=== PATIENT | female | born 1970 | race Caucasian/White ===

== ENCOUNTER 2023-04-02 10:08 | Outpatient (REF) | payer OTHER, SELFPAY | END 2023-04-02 10:09 | disposition home or self-care (01) | LOC: HO.UMASIMG 10:08 | PROVIDERS: Visit Provider Nurse Practitioner | DX: R79.89 Other specified abnormal findings of blood chemistry (principal) | CPT/HCPCS: 76700 ==

== ENCOUNTER 2025-02-02 06:38 | Outpatient (REF) | payer OTHER, SELFPAY ==
--- NOTE | ~2025-02-02 | US_ITS ---
EXAMINATION: US ABDOMEN HISTORY: LEFT SIDED PAIN TECHNIQUE: Real-time grayscale ultrasound imaging of the abdomen was performed and images were reviewed. COMPARISON: Comparison is made with the prior examination dated 04/02/2023. FINDINGS: Liver: The right lobe of the liver measures 14.5 cm in size. The left lobe of the liver measures 8.0 cm in size. The liver demonstrates coarsened echotexture. No focal mass or intrahepatic biliary ductal dilatation is identified. There is normal hepatopedal flow in the portal vein. Gallbladder and biliary tree: The gallbladder is unremarkable, without evidence of calculi, wall thickening, or pericholecystic fluid. There is no sonographic Flores sign. The common bile duct is normal in caliber measuring 1 mm. Kidneys: The right kidney measures 11.6 cm in length. The left kidney measures 11.7 cm in length. The kidneys are unremarkable, without evidence of masses, hydronephrosis, or calculi. Pancreas: The pancreatic head, neck, and body are unremarkable. The pancreatic tail is obscured by bowel gas. Spleen: The spleen is normal in size and contour, measuring 8.6 cm in length. Abdominal aorta and inferior vena cava: The visualized portions of the abdominal aorta and inferior vena cava are normal in caliber. There is no free fluid in the abdomen. US/US abdomen complete IMPRESSION: Coarsened hepatic echotexture which is a nonspecific finding. Otherwise unremarkable abdominal ultrasound. Electronically signed by: Brien Stuart MD 02/02/2025 10:05 AM [facility]
--- OUTSIDE RECORDS SUMMARY | 2025-02-02 06:41 | XMS_ITS | Encounter Summary ---
Author Organization [facility] Address [address] [place] [address] Phone Care Team Providers Care Grain Oilseed Or Pasture Grower Name Role Phone Judith Felix CNP Primary Care Provider Geovany Schmitz MD Primary Care Provider [phone] Geovany Schmitz MD Unavailable [phone] Encounter Details Date Type Department Care Team (Late st Contact Info) Description 10/22/2017 Ancillary Orders Virtual Department [address] [place] [address] Elise [place] MD [address] [place] [address] [email or web address] Chest pain, unspecified type; Cardiac ischemia Social History Tobacco Use Types Packs/Day Years Used Date Smoking Tobacco: Never Assessed Comments Unknown Sex and Gender Information Value Date Recorded Sex Assigned at Female 06/07/2018 6:00 PM EDT Legal Sex Female 6:48 PM EST Gender Identity Female 06/07/2018 6:00 PM EDT Sexual Orientation Straight 07/31/2018 8: 42 PM EDT documented as of this encounter Plan of Treatment Not on file documented as of this encounter Visit Diagnoses Diagnosis Chest pain, unspecified type Cardiac ischemia Other specified forms of chronic ischemic heart disease documented in this encounter Care Teams Grain Oilseed Or Pasture Grower Relationship Specialty Start Date End Date Judith Felix CNP PCP - General Family Medicine 10/08/17 10/28/17 Geovany Schmitz MD [address] [place] [address] [email or web address] PCP - General Internal Medicine 10/29/17 Geovany Schmitz MD [address] [place] [address] [email or web address] Insurance Assigned Provider 07/04/23 documented as of this encounter Additional Source Comments The information contained in this document represents components of the legal health record. It is not the complete legal health record.[facility]
--- OUTSIDE RECORDS SUMMARY | 2025-02-02 06:41 | XMS_ITS | Encounter Summary ---
Author Organization [facility] Address [address] [place] [address] Phone Care Team Providers Care Furnace Packer Name Role Phone Geovany Schmitz MD Primary Care Provider [phone] Geovany Schmitz MD Unavailable [phone] Encounter Details Date Type Department Care Team (Late st Contact Info) Description 05/18/2018 Ancillary Orders Virtual Department [address] [place] [address] Belen Ortiz MD [address] [place] [address] [email or web address] Pelvic and perineal pain Social History Tobacco Use Types Packs/Day Years Used Date Smoking Tobacco: Never Smokeless Tobacco: Never Alcohol Use Standard Drinks/Week Comments Yes 0 (1 standard drink = 0.6 oz pur e alcohol) Comments Unknown Sex and Gender Information Value Date Recorded Sex Assigned at Female 06/07/2018 6:00 PM EDT Legal Sex Female 6:48 PM EST Gender Identity Female 06/07/2018 6:00 PM EDT Sexual Orientation Straight 07/31/2018 8: 42 PM EDT documented as of this encounter Plan of Treatment Not on file documented as of this encounter Visit Diagnoses Diagnosis Pelvic and perineal pain documented in this encounter Care Teams Furnace Packer Relationship Specialty Start Date End Date Geovany Schmitz MD [address] [place] [address] PCP - General Internal Medicine 10/29/17 Geovany Schmitz MD [address] [place] [address] [email or web address] Insurance Assigned Provider 07/04/23 documented as of this encounter Additional Source Comments The information contained in this document represents components of the legal health record. It is not the complete legal health record.[facility]
--- OUTSIDE RECORDS SUMMARY | 2025-02-02 06:41 | XMS_ITS | Encounter Summary ---
Author Organization [facility] Address [address] [place] [address] Phone Care Team Providers Care Manga Artist Name Role Phone Judith Felix CNP Primary Care Provider Geovany Schmitz MD Primary Care Provider [phone] Geovany Schmitz MD Unavailable [phone] Encounter Details Date Type Department Care Team (Late st Contact Info) Description 10/08/2017 Ancillary Orders Virtual Department [address] [place] [address] Elise [place] MD [address] [place] [address] [email or web address] Social History Tobacco Use Types Packs/Day Years [...] documented as of this encounter Visit Diagnoses Not on filedocumented in this encounter Care Teams Manga Artist Relationship Specialty Start Date End Date Judith Felix CNP PCP - General Family Medicine 10/08/17 10/28/17 Geovany Schmitz MD [address] [place] [address] [email or web address] PCP - General Internal Medicine 10/29/17 Geovany Schmitz MD [address] [place] [address] [email or web address] Insurance Assigned Provider 07/04/23 documented as of this encounter Additional Source Comments The information contained in this document represents components of the legal health record. It is not the complete legal health record.[facility]
--- OUTSIDE RECORDS SUMMARY | 2025-02-02 06:41 | XMS_ITS | Encounter Summary ---
Author Organization [facility] Address [address] [place] [address] Phone Care Team Providers Care Dedicated Driver Name Role Phone Judith Felix CNP Primary Care Provider [phone] Geovany Schmitz MD Primary Care Provider [phone] Geovany Schmitz MD Unavailable [phone] Encounter Details Date Type Department Care Team (Late st Contact Info) Description 10/16/2017 Ancillary Orders Virtual Department [address] [place] [address] Elise [place] MD [address] [place] [address] [email or web address] Social History Tobacco Use Types Packs/Day Years [...] on filedocumented in this encounter Care Teams Dedicated Driver Relationship Specialty Start Date End Date Judith Felix CNP PCP - General Family Medicine 10/08/17 10/28/17 Geovany Schmitz MD [address] [place] [address] [email or web address] PCP - General Internal Medicine 10/29/17 Geovany Schmitz MD [address] [place] [address] [email or web address] Insurance Assigned Provider 07/04/23 documented as of this encounter Additional Source Comments The information contained in this document represents components of the legal health record. It is not the complete legal health record.[facility]
--- OUTSIDE RECORDS SUMMARY | 2025-02-02 06:41 | XMS_ITS | Encounter Summary ---
Author Organization [facility] Address [address] [place] [address] Phone Care Team Providers Care Feather Drying Machine Operator Name Role Phone Judith Felix CNP Primary Care Provider Geovany Schmitz MD Primary Care Provider [phone] Geovany Schmitz MD Unavailable [phone] Encounter Details Date Type Department Care Team (Late st Contact Info) Description 10/16/2017 Ancillary Orders Virtual Department [address] [place] [address] Elise [place] MD [address] [place] [address] [email or web address] Social History Tobacco Use Types Packs/Day Years [...] on filedocumented in this encounter Care Teams Feather Drying Machine Operator Relationship Specialty Start Date End Date Judith Felix CNP PCP - General Family Medicine 10/08/17 10/28/17 Geovany Schmitz MD [address] [place] [address] [email or web address] PCP - General Internal Medicine 10/29/17 Geovany Schmitz MD [address] [place] [address] [email or web address] Insurance Assigned Provider 07/04/23 documented as of this encounter Additional Source Comments The information contained in this document represents components of the legal health record. It is not the complete legal health record.[facility]
--- OUTSIDE RECORDS SUMMARY | 2025-02-02 06:41 | XMS_ITS | Encounter Summary ---
Author Organization [facility] Address [address] [place] [address] Phone Care Team Providers Care Firmware Software Verification Engineer Name Role Phone Judith Felix CNP Primary Care Provider [phone] Geovany Schmitz MD Primary Care Provider Geovany Schmitz MD Unavailable [phone] Encounter Details Date Type Department Care Team (Late st Contact Info) Description 10/16/2017 Ancillary Orders Virtual Department [address] [place] [address] Elise [place] MD [address] [place] [address] [email or web address] Positive cardiac stress test; Left sided chest pain Social History Tobacco Use Types Packs/Day [...] as of this encounter Visit Diagnoses Diagnosis Positive cardiac stress test Left sided chest pain documented in this encounter Care Teams Firmware Software Verification Engineer Relationship Specialty Start Date End Date Judith Felix CNP PCP - General Family Medicine 10/08/17 10/28/17 Geovany Schmitz MD [address] [place] [address] [email or web address] PCP - General Internal Medicine 10/29/17 Geovany Schmitz MD [address] [place] [address] [email or web address] Insurance Assigned Provider 07/04/23 documented as of this encounter Additional Source Comments The information contained in this document represents components of the legal health record. It is not the complete legal health record.[facility]
--- OUTSIDE RECORDS SUMMARY | 2025-02-02 06:41 | XMS_ITS | Encounter Summary ---
Author Organization [facility] Address [address] [place] [address] Phone Care Team Providers Care Research Software Engineer Name Role Phone Judith Felix CNP Primary Care Provider Geovany Schmitz MD Primary Care Provider Geovany Schmitz MD Unavailable [phone] Encounter Details Date Type Department Care Team (Late st Contact Info) Description 10/08/2017 Transcribe Orders Virtual Department 30 [place] [address] Elise [place] MD [address] [place] [address] [email or web address] Other chest pain (Primary Dx) Social History Tobacco Use Types Packs/Day Years [...] as of this encounter Visit Diagnoses Diagnosis Other chest pain- Primary documented in this encounter Care Teams Research Software Engineer Relationship Specialty Start Date End Date Judith Felix CNP PCP - General Family Medicine 10/08/17 10/28/17 Geovany Schmitz MD [address] [place] [address] [email or web address] PCP - General Internal Medicine 10/29/17 Geovany Schmitz MD [address] [place] [address] [email or web address] Insurance Assigned Provider 07/04/23 documented as of this encounter Additional Source Comments The information contained in this document represents components of the legal health record. It is not the complete legal health record.[facility]
--- OUTSIDE RECORDS SUMMARY | 2025-02-02 06:41 | XMS_ITS | Encounter Summary ---
Author Organization [facility] Address [address] [place] [address] Phone Care Team Providers Care Stonework Tracer Name Role Phone Judith Felix CNP Primary Care Provider Geovany Schmitz MD Primary Care Provider [phone] Geovany Schmitz MD Unavailable [phone] Reason for Referral * Physical Therapy (Routine) - Closed Specialty Diagnoses / Procedures Referred By Lili quispe Referred To Contact Physical Therapy Diagnoses Encounter for rehabilitation Elise [place] MD Phone: tel: fax: [email or web address] [address] Phone: tel: Referral ID Status Reason Start Date Expiration Date Visits Re quested Visits Authorized [id number] Closed 10/09/2017 10/09/2018 1 1 Encounter Details Date Type Department Care Team (Latest Contact Info) Description 10/09/2017 Transcribe Orders [facility] [address] [place] [address] Elise [place] MD [address] [place] [address] [email or web address] Encounter for rehabilitation (Primary Dx) Social History Tobacco Use Types Packs/Day Years Used Date Smoking Tobacco: Never Assessed Comments Unknown Sex and Gender Information Value Date Recorded Sex Assigned at Female 06/07/2018 6:00 PM EDT Legal Sex Female 6:48 PM EST Gender Identity Female 06/07/2018 6:00 PM EDT Sexual Orientation Straight 07/31/2018 8: 42 PM EDT documented as of this encounter Plan of Treatment Scheduled Referrals Name Type Priority Associated Diagnoses Orde r Schedule Ambulatory referral to [facility] Physical Therapy Outpatient Referral Routine Encounter for rehabilitation Ordered: 10/09/2017 documented as of this encounter Visit Diagnoses Diagnosis Encounter for rehabilitation- Primary documented in this encounter Care Teams Stonework Tracer Relationship Specialty Start Date End Date Judith Felix, UTILIZATION SPECIALIST PCP - General Family Medicine 10/08/17 10/28/17 Geovany Schmitz MD [address] [place] [address] PCP - General Internal Medicine 10/29/17 Geovany Schmitz MD [address] [place] [address] Insurance Assigned Provider 07/04/23 documented as of this encounter Additional Source Comments The information contained in this document represents components of the legal health record. It is not the complete legal health record.[facility]
--- OUTSIDE RECORDS SUMMARY | 2025-02-02 06:41 | XMS_ITS | Encounter Summary ---
Author Organization [facility] Address [address] [place] [address] Phone Care Team Providers Care Weight Reduction Specialist Name Role Phone Geovany Schmitz MD Primary Care Provider [phone] Geovany Schmitz MD Unavailable [phone] Encounter Details Date Type Department Care Team ([facility] st Contact Info) Description 05/12/2023 Transcribe Orders [facility] Phleb Main [address] [place] [address] Geovany Schmitz MD [address] [place] [address] [email or web address] Social History Tobacco Use Types Packs/Day Years Used Date Smoking Tobacco: Never Smokeless Tobacco: Never Alcohol Use Standard Drinks/Week Comments Yes 0 (1 standard drink = 0.6 oz pur e alcohol) 6 drinks a week Education Answer Date Recorded Are you interested in more education? Not on paul e 07/26/2022 Are you concerned about learning? Not on file 07/26/2022 No 07/26/2022 No 07/26/2022 Digital Access Answer Date Recorded No 08/24/2022 No 08/24/2022 No 08/24/2022 Reliable internet access at home? Not on file 08/24/2022 Device with a working camera? Not on file Comments No Sex and Gender Information Value Date Recorded Sex Assigned at Female 06/07/2018 6:00 PM EDT Legal Sex Female 6:48 PM EST Gender Identity Female 06/07/2018 6:00 PM EDT Sexual Orientation Straight 07/31/2018 8: 42 PM EDT documented as of this encounter Plan of Treatment Not on file documented as of this encounter Visit Diagnoses Not on filedocumented in this encounter Care Teams Weight Reduction Specialist Relationship Specialty Start Date End Date Geovany Schmitz MD [address] [place] [address] PCP - General Internal Medicine 10/29/17 Geovany Schmitz MD [address] [place] [address] Insurance Assigned Provider 07/04/23 documented as of this encounter Additional Source Comments The information contained in this document represents components of the legal health record. It is not the complete legal health record.[facility]
--- OUTSIDE RECORDS SUMMARY | 2025-02-02 06:41 | XMS_ITS | Encounter Summary ---
Author Organization [facility] Address [address] [place] [address] Phone Care Team Providers Care It Risk Analyst Name Role Phone Geovany Schmitz MD Primary Care Provider [phone] Geovany Schmitz MD Unavailable [phone] Encounter Details Date Type Department Care Team (Latest Contact Info) Description 05/12/2023 Transcribe Orders [facility] Phleb Main [address] [place] [address] Yimi Lopez PA [address] [place] [address] [address] Fatty liver (Primary Dx) Social History Tobacco Use Types [...] on file documented as of this encounter Results * (ABNORMAL) Comprehensive metabolic panel (05/12/2023 7:42 AM EST) SODIUM 141 133 - 146 mmol/L [facility] POTASSIUM 4.3 3.3 - 5.1 mmol/L [facility] CHLORIDE 103 96 - 108 mmol/L [facility] CO2 28 21 - 35 mmol/L [facility] BUN 19 6 - 19 mg/dL [facility] CREATININE 0.80 0.5 - 1.5 mg/dL [facility] GLUCOSE 77 70 - 99 mg/dL [facility] ALBUMIN 4.3 3.9 - 4.8 g/dL [facility] TOTAL PROTEIN 6.7 6.5 - 8.0 g/dL [facility] CALCIUM 9.2 8.4 - 10.3 mg/dL [facility] ALKALINE PHOSPHATASE 58 39 - 117 U/L [facility] TOTAL BILIRUBIN 0.5 0.0 - 1.2 mg/dL [facility] AST 51(H) 0 - 37 U/L [facility] ALT 42(H) 0 - 40 U/L [facility] GLOBULIN 2.4 1 - 4.8 g/dL [facility] EGFR 89 >59 mL/min/1.7 3m2 [facility] Comment:Estimated glomerular filtration rate calculated using the CKD-EPI refit equation. ANION GAP 14 10 - 20 mmol/L [facility] Blood 05/12/2023 7:42 AM EST 05/12/2023 8:01 AM EST us Yimi DANIEL LAB BLOOD BKR ORDERABLES Final Result [facility] [address] [place] [address] documented in this encounter Visit Diagnoses Diagnosis Fatty liver- Primary Other chronic nonalcoholic liver disease documented in this encounter Care Teams It Risk Analyst Relationship Specialty Start Date End Date Geovany Schmitz MD [address] [place] [address] [email or web address] PCP - General Internal Medicine 10/29/17 Geovany Schmitz MD [address] [place] [address] Insurance Assigned Provider 07/04/23 documented as of this encounter Additional Source Comments The information contained in this document represents components of the legal health record. It is not the complete legal health record.[facility]
--- OUTSIDE RECORDS SUMMARY | 2025-02-02 06:41 | XMS_ITS | Encounter Summary ---
Author Organization [facility] Address [address] [place] [address] Phone Care Team Providers Care Champion Of Sustainable Design Name Role Phone Geovany Schmitz MD Primary Care Provider [phone] Geovany Schmitz MD Unavailable [phone] Encounter Details Date Type Department Care Team (Late st Contact Info) Description 06/08/2018 Procedure Pass [facility] Cardiovascular And Interventional Radiology [address] [place] [address] Social History Tobacco Use Types Packs/Day Years Used Date Smoking Tobacco: Never Smokeless Tobacco: Never Alcohol Use Standard Drinks/Week Comments Yes 0 (1 standard drink = 0.6 oz pur e alcohol) 6 drinks a week Comments Unknown Sex and Gender Information Value [...] on filedocumented in this encounter Care Teams Champion Of Sustainable Design Relationship Specialty Start Date End Date Geovany Schmitz MD [address] [place] [address] [email or web address] PCP - General Internal Medicine 10/29/17 Geovany Schmitz MD [address] [place] [address] (work) [email or web address] Insurance Assigned Provider 07/04/23 documented as of this encounter Additional Source Comments The information contained in this document represents components of the legal health record. It is not the complete legal health record.[facility]
--- OUTSIDE RECORDS SUMMARY | 2025-02-02 06:41 | XMS_ITS | Clinical Summary ---
Author Organization [facility] Address [address] [place] [address] Care Team Providers Care Meter Maintenance Person Name Role Phone Unknown, Primary Care Provider Unavailabl e Social History Tobacco Use Types Packs/Day Years Used Date Smoking Tobacco: Never Assessed Sex and Gender Information Value Date Recorded Sex Assigned at Not on file Gender Identity Not on file Sexual Orientation Not on file Job Start Date Occupation Industry Not on file Not on file Not on file Plan of Treatment Health Maintenance Due Date Last Done Comments Hepatitis B Vaccines (1 of 3 - 3-dose series) 1971 Hepatitis C Screening 1971 COVID-19 Vaccine (#1) 1971 Depression Screening 1983 Preventative Health Evaluation 1989 DTap / Tdap / Td (1 - Tdap) 1990 Cervical Cancer Screening (P ap Smear) 01/05/1992 Colon Cancer Screening (Colonoscopy) 01/05/2016 Breast Cancer Screening (Mammogram) 2021 Shingrix-Zoster Vaccine (1 of 2) 2021 Influenza Vaccine (#1) 2024 Pneumococcal Vaccine Aged Out No long er eligible based on patient's age to complete this topic RSV Ped < 20 months Aged Out No longe r eligible based on patient's age to complete this topic Care Teams Meter Maintenance Person Relationship Specialty Start Date End Date Unknown, PCP - General 05/27/23
--- OUTSIDE RECORDS SUMMARY | 2025-02-02 06:41 | XMS_ITS | Encounter Summary ---
Author Organization [facility] Address [address] [place] [address] Phone Care Team Providers Care Roll Off Driver Name Role Phone Geovany Schmitz MD Primary Care Provider [phone] Geovany Schmitz MD Unavailable [phone] Encounter Details Date Type Department Care Team (Late st Contact Info) Description 12/07/2017 Procedure Pass [facility] [address] [place] [address] Social History Tobacco Use Types Packs/Day Years [...] on filedocumented in this encounter Care Teams Roll Off Driver Relationship Specialty Start Date End Date Geovany Schmitz MD [address] [place] [address] PCP - General Internal Medicine 10/29/17 Geovany Schmitz MD [address] [place] [address] [email or web address] Insurance Assigned Provider 07/04/23 documented as of this encounter Additional Source Comments The information contained in this document represents components of the legal health record. It is not the complete legal health record.[facility]
--- OUTSIDE RECORDS SUMMARY | 2025-02-02 06:41 | XMS_ITS | Clinical Summary ---
Author Organization [facility] Address [address] [place] [phone] Phone Care Team Providers Care Glass Deposition Tender Name Role Phone Geovany Scmhitz MD Primary Care Provider Geovany Schmitz MD Unavailable [phone] Allergies Active Allergy Reactions Criticality Noted Date Comments Avocado 06/07/2018 Quinolones 06/07/2018 Medications No known medications Active Problems Problem Noted Date Diagnosed Date Abnormal electrocardiogram 08/29/2019 Chest pain 06/07/2018 Assessment & Plan (06/07/2018 9:19 PM EDT): Lise is a very active 48-year-old female who is training for half marathon who had chest pain during a spin class today. Her troponins are elevated, her clinical story is concerning. At baseline her EKG has some abnormal findings including poor R wave progression in the anterior leads and inverted T waves inferiorly. These are present on the March 31, 2014 EKG that I reviewed today but the poor R wave progression is dated before 2012. Today's EKG shows a biphasic T in V3, as well as persistent T inversions in V3 and potentially new T inversions in aVF. She is currently chest pain-free. Dr. Keys was counted by the ED physician who recommended that we admit the patient overnight. She will have a cardiology consultation and a stress test ordered tomorrow morning. He did not recommend anti-coagulating her at this time unless there is further chest pain or further changes in the delta on the troponin for further episodes of chest pain. Family History Medical History Relation Comments Hypertension Brother Obesity Brother No Known Problems Father Coronary artery disease Mother Relation Status Comments Brother Alive Father Alive Mother Other Social History Tobacco Use Types Packs/Day Years [...] Orientation Straight 07/31/2018 8: 42 PM EDT Last Filed Vital Signs Vital Sign Reading Time Taken Comments Blood Pressure 102/60 08/29/2019 11:53 AM EDT Pulse 67 08/29/2019 11:53 AM EDT Temperature 36.5 C (97.7 F) 07/31/2018 8:41 PM EDT Respiratory Rate 20 07/31/2018 8:41 PM EDT Oxygen Saturation 99% 08/29/2019 11:53 AM EDT Inhaled Oxygen Concentration - - Weight 72.2 kg (159 lb 3.2 oz) 08/29/2019 11:53 AM EDT Height 160 cm (5' 3 ) 08/29/2019 11:53 AM EDT pe r pt Body Mass Index 28.2 08/29/2019 11:53 AM EDT Plan of Treatment Health Maintenance Due Date Last Done Comments DEPRESSION SCREENING 1983 HIV ONE-TIME SCREENING (18-6 5 YEARS) 1989 PAP SMEAR 01/05/1992 MAMMOGRAM 2011 COLOGUARD 01/05/2016 COLONOSCOPY 01/05/2016 COLORECTAL CANCER SCREENING 01/05/2016 FIT TEST 01/05/2016 FOBT 01/05/2016 SIGMOIDOSCOPY 01/05/2016 VIRTUAL COLONOSCOPY 01/05/2016 PNEUMOCOCCAL VACCINES (50+ years) (1 of 1 - PCV) 2021 ZOSTER VACCINES (1 of 2) 2021 INFLUENZA VACCINE (#1) 2024 COVID-19 VACCINE (3 - 2024-2 6 season) 2024 06/05/2020, 05/08/2020 Adult Td,Tdap Booster 08/11/2026 08/11/2016 LIPID PANEL 02/27/2028 02/26/2023, 02/26/2023 RSV VACCINE (1 - 1-dose 75+ series) 2046 SMOKING STATUS SCREENING (On ce After 26 Yrs) Completed 08/29/2019 HEPATITIS C SCREENING Completed 06/21/2021 HEPATITIS A VACCINES Aged Out No long er eligible based on patient's age to complete this topic HIB VACCINES Aged Out No longer eligi ble based on patient's age to complete this topic MENINGOCOCCAL VACCINES (ACWY) Aged Out No longer eligible based on patient's age to complete this topic MENINGOCOCCAL VACCINES (B) Aged Out N o longer eligible based on patient's age to complete this topic Medical Devices Not on file Insurance EXPLORER POS [facility] EXPLORER [place] [address] [place] [address] EXPLORER POS EXPLORER POS HC EXPLORER POS Advance Directives For more information, please contact: [phone] (9AM - 5PM [facility], Thursday-Thursday) * Full Code (Presumed) (Latest Code Status on File) Date Activated Date Inactivated Comments 06/07/2018 10:58 PM 06/08/2018 7:16 PM Care Teams Glass Deposition Tender Relationship Specialty Start Date End Date Geovany Schmitz MD [address] [place] [id number] PCP - General Internal Medicine 10/29/17 Geovany Schmitz MD [address] [place] [address] [email or web address] Insurance Assigned Provider 07/04/23 Additional Source Comments The information contained in this document represents components of the legal health record. It is not the complete legal health record.[facility]
--- OUTSIDE RECORDS SUMMARY | 2025-02-02 06:41 | XMS_ITS | Encounter Summary ---
Author Organization [facility] Address [address] [place] [address] Phone Care Team Providers Care Artist Color Separation Name Role Phone Judith Felix CNP Primary Care Provider [phone] Geovany Schmitz MD Primary Care Provider Geovany Schmitz MD Unavailable [phone] Encounter Details Date Type Department Care Team (Late st Contact Info) Description 10/16/2017 Ancillary Orders Virtual Department [address] [place] [address] Elise Montgomery MD [address] [place] [phone] [email or web address] Positive cardiac stress test Social History Tobacco Use Types Packs/Day Years [...] Visit Diagnoses Diagnosis Positive cardiac stress test documented in this encounter Care Teams Artist Color Separation Relationship Specialty Start Date End Date Judith Felix CNP PCP - General Family Medicine 10/08/17 10/28/17 Geovany Schmitz MD [address] [place] [address] [email or web address] PCP - General Internal Medicine 10/29/17 Geovany Schmitz MD [address] [place] [address] [email or web address] Insurance Assigned Provider 07/04/23 documented as of this encounter Additional Source Comments The information contained in this document represents components of the legal health record. It is not the complete legal health record.[facility]
--- OUTSIDE RECORDS SUMMARY | 2025-02-02 06:41 | XMS_ITS | Encounter Summary ---
Author Organization [facility] Address [address] [place] [address] Phone Care Team Providers Care Spout Liner Helper Name Role Phone Judith Felix CNP Primary Care Provider Geovany Schmitz MD Primary Care Provider [phone] Geovany Schmitz MD Unavailable [phone] Encounter Details Date Type Department Care Team (Late st Contact Info) Description 10/16/2017 Ancillary Orders Virtual Department [address] [place] [address] Elise Montgomery MD [address] [place] [phone] [email or web address] Social History Tobacco Use [...] on filedocumented in this encounter Care Teams Spout Liner Helper Relationship Specialty Start Date End Date Judith Felix CNP PCP - General Family Medicine 10/08/17 10/28/17 Geovany Schmitz MD [address] [place] [address] [email or web address] PCP - General Internal Medicine 10/29/17 Geovany Schmitz MD [address] [place] [address] [email or web address] Insurance Assigned Provider 07/04/23 documented as of this encounter Additional Source Comments The information contained in this document represents components of the legal health record. It is not the complete legal health record.[facility]
--- OUTSIDE RECORDS SUMMARY | 2025-02-02 06:41 | XMS_ITS | Encounter Summary ---
Author Organization [facility] Address [address] [place] [address] Phone Care Team Providers Care Fence Repairman Name Role Phone Judith Felix CNP Primary Care Provider Geovany Schmitz MD Primary Care Provider [phone] Geovany Schmitz MD Unavailable [phone] Encounter Details Date Type Department Care Team (Late st Contact Info) Description 10/08/2017 Ancillary Orders Virtual Department [address] [place] [address] Elise Montgomery MD [address] [place] [address] [email or web address] Chest pain, unspecified type Social History Tobacco Use Types Packs/Day Years [...] documented as of this encounter Results * Stress Test Exercise (10/16/2017 12:36 PM EDT) Max BP Systolic 130 mmHg [facility] Max BP Diastolic 70 mmHg [facility] Max HR 151 BPM [facility] Resting HR 63 BPM [facility] Resting BP Systolic 110 mmHg [facility] Resting BP Diastolic 70 mmHg [facility] Peak METS 11.6 METS [facility] Peak HR 151 BPM [facility] Anatomical Region Laterality Modality Heart Other 10/16/2017 10:1 0 AM EDT 10/16/2017 12:35 PM EDT Narrative 10/21/2017 6:06 AM EDT There was electrocardiographic evidence of myocardial ischemia at a diagnostic workload. Clinically, this is a moderate risk study. Stress Findings There was evidence of myocardial ischemia at a diagnostic workload. Clinically, this is a moderate risk study. Response to Stress The patient exercised for minutes seconds, achieving 11.6 METS at peak exercise. Baseline blood pressure was 110/70 bpm, and baseline heart rate was 63. The patient achieved a peak heart rate of 151 bpm, which is% of their maximum predicted heart rate. Exercise Stress Test Report: Reason for termination: fatigue Summary: Resting ECG: SR HR 62 BPM Functional capacity: good Heart rate response to exercise: appropriate Blood pressure response to exercise: baseline normotensive - appropriate response to exercise Chest pain: none Arrhythmias: none Conclusion: Patient exercised for 9:28 minutes on a standard Ran protocol achieving 86% MPHR and 11.6 METS. Test terminated due to fatigue. Summary: 1. EKG: Up to [address] depressions in II, III, aVF during peak exercise, resolving in recovery. Slight ST-T wave changes in V4-V6 in peak exercise, also resolving in recovery. These could be indicative for ischemia. 2. Symptoms: No exertional chest pain or symptoms concerning for angina. 3. Exercise physiology: Normal heart rate and BP response to exercise. Max HR 151 BPM with normal HR recovery. Max BP 130/70 from baseline BP of 110/70. Good functional capacity for age noted. 4. Arrhythmia: None Conclusion: Abnormal ETT. ST depressions noted in inferiolateral leads that could be suggestive of ischemia. Alvarez Treadmill Score -1. Vital signs at baseline at time of discharge from the lab. EKG reviewed with Dr. Gerardo. Recommend treadmill nuclear stress testing for further workup. PCP office notified. Patient is also aware. Jennifer Leon, SANITATION OFFICER, MPH . Elise Montgomery MD CV STRESS ORDERABLES Final Re sult documented in this encounter Visit Diagnoses Diagnosis Chest pain, unspecified type Chest pain, unspecified type documented in this encounter Care Teams Fence Repairman Relationship Specialty Start Date End Date Judith Felix CNP [email or web address] PCP - General Family Medicine 10/08/17 10/28/17 Geovany Schmitz MD [address] [place] [address] [email or web address] PCP - General Internal Medicine 10/29/17 Geovany Schmitz MD [address] [place] [address] [email or web address] Insurance Assigned Provider 07/04/23 documented as of this encounter Additional Source Comments The information contained in this document represents components of the legal health record. It is not the complete legal health record.[facility]
--- OUTSIDE RECORDS SUMMARY | 2025-02-02 06:41 | XMS_ITS | Encounter Summary ---
Author Organization [facility] Address [address] [place] [address] Phone Care Team Providers Care Field Sales Specialist Name Role Phone Judith Felix CNP Primary Care Provider Geovany Schmitz MD Primary Care Provider [phone] Geovany Schmitz MD Unavailable [phone] Reason for Referral * Outpatient Procedure - Closed Specialty Diagnoses / Procedures Referred By Lili quispe Referred To Contact Diagnoses Chest pain, unspecified type Procedures Adult Echo TTE Elise Montgomery MD Phone: tel: fax: [email or web address] Referral ID Status Reason Start Date Expiration Date Visits Re quested Visits Authorized [id number] Closed 10/13/2017 12/12/2017 1 1 Encounter Details Date Type Department Care Team (Late st Contact Info) Description 10/08/2017 Ancillary Orders Virtual Department [address] [place] [address] Elise Montgomery MD [address] [place] [phone] [email or web address] Chest pain, unspecified type Social History Tobacco [...] documented as of this encounter Results * TTE COMPREHENSIVE (10/16/2017 9:44 AM EDT) Body Surface Area 1.7 m2 Height 160 m Weight 70 kg Systolic BP 103 mmHg Diastolic BP 65 mmHg Interventricular Septum Thickness 10 mm Left Ventricle Internal Diameter End Diastole 39 37 - 52 mm Left Ventricle Internal Diameter End Systole 19 22 - 35 mm Left Ventricular Outflow Tract Diameter 17.00 mm LVOT VTI REST 315.00 mm Left Ventricular Outflow Tract Velocity 1,200.00 mm/s Left Ventricular Outflow Tract Gradient at Rest 6.00 mmHg Left Ventricular Posterior Wall Thickness 9 mm Ejection Fraction 70 50 - 75 Percent Left Atrium Dimension Anterior-Posterior 37 15 - 40 mm Aortic Valve Peak Velocity 1,220.00 mm/s Aortic Valve Peak Gradient 6.00 mmHg Aortic Sinus Diameter 29 mm Ascending Aorta Diameter 26 mm Inferior Vena Cava Diameter 12 0.0 - 21 mm Mitral Valve Deceleration Time 232.00 ms Mitral Valve A Wave Speed 732.00 mm/s Mitral Valve E Wave Speed 1,000.00 mm/s Right Ventricle Basal Diameter 33.20 25 - 41 mm Tricuspid Valve Peak Velocity 1,640.00 mm/s Tricuspid Valve Peak Velocity 1,640.00 mm/s Raw LV EF% 76 % Left Atrial Volume 36 mL Left Atrial Volume Index 21.18 mL/m2 Aortic Valve Sinus Index 1 17 20 - 32 mm Ascending Aorta Diameter 15 mm Aortic Sinus Index 17 mm Ascending Aorta Index 15 mm Anatomical Region Laterality Modality Heart Ultrasound Narrative 10/16/2017 3:57 PM EDT The left ventricular cavity size and wall thickness are normal. Left ventricular systolic function is normal. The estimated ejection fraction is 70% Left ventricular diastolic function appears within normal limits for age No significant valvular heart disease Normal pulmonary pressure No prior studies for comparison Left Ventricle The left ventricular cavity size and wall thickness are normal. Left ventricular systolic function is normal. There are no segmental left ventricular wall motion abnormalities noted. The estimated ejection fraction is 70% (Normal 50-75%). The left ventricular ejection fraction was measured by the bi-plane method of discs. Left ventricular diastolic function appears within normal limits for age. There is no evidence of left ventricular thrombus. Right Ventricle The right ventricular size is normal. No evidence of right ventricular hypertrophy. The right ventricular systolic function is normal. Left Atrium The left atrium is mildly dilated. The left atrial anterior-posterior dimension measures 37 mm (normal 15-40 mm). The LA volume is 36 mL. The LA volume index is 21.18 mL/m2 (normal indexed value is 16-34 mL/m2). The pulmonary venous flow profiles are normal. Pulmonary vein connections were not well seen. Right Atrium The right atrium is normal in size. The IVC is normal in size (2.1cm or less). The IVC measures 12 mm (normal <=21 mm). The IVC demonstrates normal collapse with inspiration which is consistent with normal RA pressure. Mitral Valve The mitral valve appears normal. The E/A ratio is 1.4. The E/E' AVG is 10.4. There is no evidence of mitral stenosis. There is mild increased thickening of the anterior mitral valve leaflet. There is trace mitral regurgitation detected by spectral and color Doppler. Tricuspid Valve The tricuspid valve appears normal. There is no evidence of tricuspid stenosis. The peak TR gradient is 11 mmHg. The RAP is 3. The estimated RVSP is 14 mmHg. Normal pulmonary pressure. There is evidence of trace tricuspid regurgitation by color and spectral Doppler. Aortic Valve The aortic valve appears normal. The aortic valve is tricuspid. There is no evidence of valvular aortic stenosis. The peak aortic valve gradient is 6 mmHg. There is no evidence of aortic regurgitation by color and spectral Doppler. Pulmonic Valve The pulmonary valve appears normal. There is no evidence of pulmonic stenosis. There is no evidence of pulmonary regurgitation by color and spectral Doppler. Pericardium There is no evidence of pericardial effusion. There no evidence of a pleural effusion. Interatrial Septum The interatrial septum appears normal. Interventricular Septum Interventricular septal motion appears normal. General Findings The image quality was good (2). Color flow Doppler and Spectral Doppler used in the evaluation. Comparison Findings No prior studies for comparison. us Elise Montgomery MD CV ECHO ORDERABLES Final Resu lt documented in this encounter Visit Diagnoses Diagnosis Chest pain, unspecified type Chest pain, unspecified type documented in this encounter Care Teams Field Sales Specialist Relationship Specialty Start Date End Date Judith Felix, [employer] MEMBER [email or web address] PCP - General Family Medicine 10/08/17 10/28/17 Geovany Schmitz MD [address] [place] [phone] PCP - General Internal Medicine 10/29/17 Geovany Schmitz MD [address] [place] [address] [email or web address] Insurance Assigned Provider 07/04/23 documented as of this encounter Additional Source Comments The information contained in this document represents components of the legal health record. It is not the complete legal health record.[facility]
== END 2025-02-02 06:39 | disposition home or self-care (01) ==
LOC: HO.UMASIMG 06:38
PROVIDERS: Visit Provider Family Medicine
DX: R10.A2 Flank pain, left side (principal)
CPT/HCPCS: 76700

== ENCOUNTER → 2025-02-02 08:44 | Outpatient (BNV) | payer OTHER, SELFPAY | PROVIDERS: Visit Provider Radiology Diagnostic Radiology | DX: R10.9 Unspecified abdominal pain (principal) | CPT/HCPCS: 76700 ==